=== PATIENT | female | born 1960 | race Caucasian/White ===

== ENCOUNTER 2023-10-03 21:34 | Inpatient (IN) | payer BC, SELFPAY ==
[2023-10-03] VITALS (15 sets, daily range): BP systolic 102–131; BP diastolic 64–68; PULSE 97–118; RESP 15–28; TEMP 37.6; O2SAT 88–97
--- NOTE | ~2023-10-03 | XR_ITS ---
EXAMINATION: XR chest 1V portable DATE: 10/03/2023 22:30 INDICATION: Dyspnea TECHNIQUE: frontal view of the chest was obtained. COMPARISON: CT dated 10/03/2023 FINDINGS: Airspace opacities in the left lower lung zones and project over the elevated right hemidiaphragm and the medial right lower lung zone consistent with pneumonia. The cardiomediastinal silhouette is norm al. Postoperative changes including resection of the medial portion of the bilateral clavicles and wi th multiple surgical clips at the midline of the neck. IMPRESSION: 1. Pneumonia at the bilateral lower lungs Reviewed, dictated and finalized at location A.
--- NOTE | ~2023-10-03 | CT_ITS ---
EXAMINATION: CTA chest PE protocol DATE: 10/03/2023 23:41 INDICATION: Dyspnea and hypoxia TECHNIQUE: Computed tomography (CT) pulmonary angiogram of the chest was performed with 100 mL Omnipa que-350 intravenous contrast. Additional 3D reconstructions utilizing coronal maximum intensity proje ction (MIP) were performed. Automated exposure control and iterative reconstruction technique were em ployed. The dose-length product was 323.00 mGy-cm. COMPARISON: None FINDINGS: No pulmonary embolism. There is patchy consolidation and groundglass opacities without corresponding volume loss in the basilar segments of the left lower lobe into a lesser degree in the posterior basi lar segment of the right lower lobe consistent with pneumonia. Small amount of paramediastinal fibros is in the bilateral upper lobes likely related to prior radiation treatment. Postoperative changes at the thoracic inlet with multiple surgical clips in the region of the absent thyroid with resection o f the medial heads of the bilateral clavicles and likely also a portion of the cephalad aspect of the manubrium. No pleural effusion. Heart size is normal. Minimal pericardial effusion. Thoracic aorta i s normal in caliber with no dissection. Calcified subcarinal lymph node consistent with old granuloma tous disease. No pathologically enlarged thoracic lymphadenopathy. There are a couple low-attenuatio n hepatic cysts measuring up to 1.4 cm. IMPRESSION: 1. No pulmonary embolism. 2. Likely pneumonia in the bilateral lower lobes. 3. 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 Correlate with clinical/surgical history. 4. Minimal pericardial effusion. Reviewed, dictated and finalized at location A. IMPRESSION: 1. No pulmonary embolism. 2. Likely pneumonia in the bilateral lower lobes. 3. Status post thyroidectomy with resection of the medial heads of the bilatera l clavicles and the cephalad portion of the manubrium and likely associated par amediastinal radiation fibrosis in the bilateral upper lobes. Correlate with cl inical/surgical history. 4. Minimal pericardial effusion.
--- NOTE | 2023-10-03 21:44 | ECG_ITS ---
Measurements Intervals [place] Rate: 116 P: [place]: 0 QRS: 6 QRSD: 88 T: 18 QT: 327 QTc: 455 Interpretive Statements SINUS TACHYCARDIA BASELINE WANDER- AVF, V4-V6 MINIMAL Q WAVES- INF/HIGH LAT LEADS BORDERLINE ST ABNORMALITY- LAT/HIGH LAT LEADS ABNORMAL ECG NO PREVIOUS ECG AVAILABLE FOR COMPARISON Electronically Signed On 10-04-2023 7:57:46 CDT by Oscar Pena D.O.
[2023-10-03] MEDS: IPRATROPIUM 0.5 MG/ALBUTEROL SULFATE 2.5 MG AMPUL.NEB 3 ML INHALATION (22:03)
[2023-10-03 22:08] LABS: Alveolar/Arterial O2 Gradient 103.9 mmHg; Base Excess ABG -4.8 mEq/l (+/-2.0); Fractional Inspired Oxygen 28 %; HCO3 ABG 18.6 mEq/l (22.0-26.0); Oxygen Content ABG 16.7 %vol (16.0-22.0); Oxygen Saturation ABG 92.1 % (95.0-100.0); Oxyhemoglobin 90.2 % THb (90.0-100.0); PCO2 ABG 29.6 mmHg (35.0-45.0); PO2 ABG 60.8 mmHg (80.0-100.0); PO2 FiO2 Ratio Arterial Blood 2.17 %; Total Hemoglobin 13.2 g/dL (12.0-18.0); pH ABG 7.415 (7.350-7.450)
[2023-10-03 22:09] LABS: Device NASAL CANNULA; Modified Allen's Test Pass; Site Drawn RIGHT RADIAL
--- NOTE | 2023-10-03 22:25 | ED.GENADULT ---
HPI - General Adult General Chief complaint: Shortness of Breath/Dyspnea Stated complaint: RESPIRATORY DISTRESS Time Seen by Provider: 10/03/23 21:39 History of Present Illness HPI narrative: Patient 63-year-old female who presents emergency department with chief complaint of shortness of breath. The patient states that around 4:00 p.m. she started having episodes of feeling extremely short of breath reports she was wheezing EMS was called and she was found to be saturating 79% on room air patient was given DuoNeb magnesium and Solu-Medrol. The patient was initially started on a non-rebreather but was able to titrate down to the 3 L nasal cannula oxygen. The patient did have a heart rate in the 140s and reports that she does have prior history of atrial fibrillation and is on Cardizem for AFib and takes a daily aspirin. Related Data Home Medications Medication Instructions Recorded Confirmed diltiazem HCl 180 mg mg PO 10/04/23 capsule,extended release 24 hr duloxetine 30 mg capsule,delayed mg PO 10/04/23 release esomeprazole magnesium 40 mg mg 10/04/23 capsule,delayed release levothyroxine 125 mcg tablet mcg 10/04/23 lovastatin 20 mg tablet mg 10/04/23 Allergies Allergy/AdvReac Type Severity Reaction Status Date / Time No Known Allergies Allergy Verified 10/03/23 21:44 Review of Systems Review of Systems: A 10 system review of systems was completed on the patient and is negative except for what is stated in the HPI. Nursing and ancillary documentation was reviewed. Exam Narrative: GENERAL: Well-appearing, well-nourished, and in no acute distress. HEAD: Normocephalic, atraumatic. EYES: PERRLA and EOMI. ENT: Nares clear, no rhinorrhea or epistaxis. Mucous membranes moist. NECK: Supple. CHEST: crackles to auscultation. No respiratory distress. HEART: Regular rate and rhythm. No murmur heard. Normal peripheral pulses. ABDOMEN: Soft, nontender, nondistended, normal active bowel sounds. EXTREMITIES: Normal range of motion. No edema. SKIN: Warm, dry, no rash. NEURO: No focal deficits. Alert and oriented x3. PSYCH: Normal mood and affect. Course Vital Signs Vital signs: Vital Signs Temperature 37.6 C 10/03/23 21:34 Pulse Rate 118 H 10/03/23 21:34 Respiratory Rate 15 03/16/24 21:34 Blood Pressure 121/68 10/03/23 21:34 Pulse Oximetry 88 L 10/03/23 21:34 Oxygen Delivery Room Air 10/03/23 21:34 Temperature 37.6 C 10/03/23 21:34 Pulse Rate 91 10/04/23 02:50 Respiratory Rate 18 10/04/23 02:50 Blood Pressure 107/75 10/04/23 00:51 Pulse Oximetry 95 10/04/23 02:50 Oxygen Delivery Nasal Cannula 10/03/23 21:49 Oxygen Flow Rate 2 10/03/23 21:49 Medical Decision Making MDM Narrative Medical decision making narrative: differential diagnosis includes pneumonia, PE, CHF, ACS, pneumothorax chest x-ray showed no evidence of pneumothorax chest CT showed bilateral lower lobe parenchymal infiltrates left worse than right laboratory studies showed a white count of 11.4 D-dimer was 1.75 ABG showed a pH 7.415 CO2 of 29.6 PO2 of 60.8 electrolytes showed a sodium 137 potassium 3.2 chloride 108 CO2 was 20 BUN was 15 creatinine 0.6 glucose is 122 lactate was 1.3 magnesium was 2.6 liver enzymes within normal limits troponin was 0 hour 3 hour BNP was normal acute procalcitonin is 0.3 urinalysis showed 1+ ketones COVID flu and RSV were negative blood cultures were obtained patient was started on Rocephin and Zithromax the patient will be admi Vital Signs Vital Signs: Vital Signs Temperature 37.6 C 10/03/23 21:34 Pulse Rate 118 H 10/03/23 21:34 Respiratory Rate 15 10/03/23 21:34 Blood Pressure 121/68 10/03/23 21:34 Pulse Oximetry 88 L 10/03/23 21:34 Oxygen Delivery Room Air 10/03/23 21:34 Temperature 37.6 C 10/03/23 21:34 Pulse Rate 91 10/04/23 02:50 Respiratory Rate 18 10/04/23 02:50 Blood Pr
[2023-10-03 22:37] LABS: Hematocrit 37.5 % (37.0-47.0); Hemoglobin 12.8 g/dL (12.0-15.0); Mean Corpuscular HGB Conc 34.1 g/dl (32-36); Mean Corpuscular Volume 90.8 fl (80-100); Mean Platelet Volume 8.5 fl (7.4-10.4); Platelet Count Result 185 k/mm3 (150-375); Red Blood Count 4.13 M/mm3 (4.2-5.4); Red Cell Distribution Width 12.6 % (11.5-14.5); White Blood Count 11.4 K/mm3 (4.5-10.0)
[2023-10-03 22:47] LABS: Magnesium 2.6 mg/dL (1.6-2.3)
[2023-10-03 22:48] LABS: Alanine Aminotransferase 16 U/L (6-35); Albumin Level 4.3 g/dL (3.5-5.1); Alkaline Phosphatase 85 U/L (38-126); Anion Gap 9 mmol/L (8-16); Aspartate Amino Transferase 26 U/L (14-36); Bilirubin,Total 0.5 mg/dL (0.2-1.3); Blood Urea Nitrogen 15 mg/dL (7-17); Calcium 8.9 mg/dL (8.4-10.2); Carbon Dioxide 20 mmol/L (22-30); Chloride 108 mmol/L (98-107); Estimated CRCL calculation 88 ml/min; Estimated Glomerular Filt Rate > 60; Glucose 122 mg/dL (65-110); Potassium 3.2 mmol/L (3.4-5.0); Prothrombin Time 13.4 Seconds (11.1-14.7); Sodium 137 mmol/L (137-145)
[2023-10-03 22:49] LABS: Partial Thromboplastin Time 27.8 Seconds (22.3-36.8)
[2023-10-03 22:57] LABS: NT Pro B Type Natriuretic Pept 78 pg/mL (19.9-100)
[2023-10-03 23:00] LABS: Troponin I < 0.012 ng/mL (0.000-0.034)
[2023-10-03 23:04] LABS: Procalcitonin 0.3 ng/mL
[2023-10-03 23:05] LABS: Lactic Acid Reflex 1.3 mmol/L (0.7-2.0)
[2023-10-03 23:05] LABS: Band Neutrophils Percent 7 % (0-6); Lymphocytes Absolute Manual 0.34 K/mm3 (1.1-4.5); Lymphocytes Percent Manual 3 % (18-44); Monocytes Absolute Manual 0.34 K/mm3 (0.1-0.90); Monocytes Percent Manual 3 % (3-9); Neutrophils Absolute Manual 10.71 K/mm3 (1.7-7.2); Neutrophils Percent Manual 87 % (46-73); Total Cells Counted 100
[2023-10-03 23:06] LABS: Platelet Estimate Adequate (Adequate)
[2023-10-03 23:07] LABS: Large Platelets Present; Polychromasia 1+
[2023-10-03 23:09] LABS: D Dimer 1.75 ug/mL (<0.48); Schistocytes None Seen
[2023-10-03 23:11] LABS: Appearance Urine Clear (Clear); Bilirubin Urine Negative (Negative); Blood Urine Negative (Negative); Color Urine Yellow (Yellow); Glucose Urine UA Negative (Negative); Ketones Urine 1+ mg/dL (Negative); Leukocyte Esterase Ur Negative LEU/UL (Negative); Nitrate Urine Negative (Negative); Protein Urine Negative (Negative); Specific Grav Ur 1.016 (1.001-1.035); Urobilinogen Urine 0.2 mg/dL (<2.0)
[2023-10-03 23:12] LABS: Influenza A QL RT-PCR Negative (Negative); Influenza B QL RT-PCR Negative (Negative); RSV RNA, RT-PCR Negative (Negative); SARS-CoV-2 RNA PCR Negative (Negative)
[2023-10-03 23:23] LABS: Add Urine Microscopic? NO
[2023-10-04] VITALS (23 sets, daily range): BP systolic 97–126; BP diastolic 58–75; PULSE 89–99; RESP 16–20; TEMP 36.4–36.7; O2SAT 92–96; BMI 32.1
--- NOTE | 2023-10-04 01:21 | ECG_ITS ---
Measurements Intervals [place] Rate: 91 P: 23 [place]: 220 QRS: -24 QRSD: 92 T: -25 QT: 382 QTc: 472 Interpretive Statements SINUS RHYTHM WITH FIRST DEGREE AV BLOCK POSSIBLE LEFT ATRIAL ENLARGEMENT DELAYED PRECORDIAL R/S TRANSITION INFERIOR INFARCT, AGE INDETERMINATE BORDERLINE ST-T WAVE ABNORMALITY- HIGH LATERAL LEADS BASELINE WANDER- I, II, III, AVF ABNORMAL ECG COMPARED TO ECG 10/03/2023 21:49:26 SINUS RHYTHM NOW PRESENT MYOCARDIAL INFARCT NOW PRESENT Electronically Signed On 10-04-2023 8:06:21 CDT by Oscar Pena D.O.
[2023-10-04 01:46] LABS: Troponin I < 0.012 ng/mL (0.000-0.034)
[2023-10-04] MEDS: AZITHROMYCIN 500 MG/NS 250 ML 500 MG/250 ML BAG 250 MG IVPB (03:56)
--- NOTE | 2023-10-04 04:37 | ADMGEN ---
This patient, Maria Esther Coreas, was admitted to Medical Room 346-01. Patient/family oriented to hospital policies and general routines including ID bracelet, bed and alarms, visiting hours, pain management, procedures, bathroom and other care routines, personal items, smoking policy, room service/diet, and visiting hours. Information on how to activate the Rapid Response Team has been discussed. Patient/Family are encouraged to report perceived risks to care and to ask questions if they do not understand what they are told or what they should do.
[2023-10-04] MEDS: IPRATROPIUM 0.5 MG/ALBUTEROL SULFATE 2.5 MG AMPUL.NEB 3 ML INHALATION ×3 (07:56→19:42)
[2023-10-04 09:45] LABS: Hematocrit 34.1 % (37.0-47.0); Hemoglobin 11.5 g/dL (12.0-15.0); Mean Corpuscular HGB Conc 33.7 g/dl (32-36); Mean Corpuscular Hemoglobin 30.8 pg (26-34); Mean Corpuscular Volume 91.4 fl (80-100); Mean Platelet Volume 8.6 fl (7.4-10.4); Platelet Count Result 182 k/mm3 (150-375); Red Blood Count 3.73 M/mm3 (4.2-5.4); Red Cell Distribution Width 12.8 % (11.5-14.5); White Blood Count 20.9 K/mm3 (4.5-10.0)
[2023-10-04 09:56] LABS: Alanine Aminotransferase 15 U/L (6-35); Albumin Level 4.1 g/dL (3.5-5.1); Alkaline Phosphatase 76 U/L (38-126); Anion Gap 6 mmol/L (8-16); Aspartate Amino Transferase 24 U/L (14-36); Bilirubin,Total 0.4 mg/dL (0.2-1.3); Blood Urea Nitrogen 16 mg/dL (7-17); Calcium 8.7 mg/dL (8.4-10.2); Carbon Dioxide 23 mmol/L (22-30); Chloride 108 mmol/L (98-107); Estimated CRCL calculation 88 ml/min; Estimated Glomerular Filt Rate > 60; Glucose 175 mg/dL (65-110); Potassium 4.3 mmol/L (3.4-5.0); Sodium 137 mmol/L (137-145)
[2023-10-04] MEDS: LEVOTHYROXINE SODIUM 125 MCG TABLET PO (10:15)
[2023-10-04] MEDS: ASPIRIN 81 MG ENTERIC TABLET PO (10:15)
[2023-10-04] MEDS: dilTIAZem HCL CD 180 MG CAP.24HR PO (10:15)
[2023-10-04] MEDS: PANTOPRAZOLE 40 MG TABLET PO (10:15)
[2023-10-04] MEDS: DULoxetine HCL 30 MG CAPSULE.DR PO (10:15)
--- NOTE | 2023-10-04 12:07 | PM.IMHP ---
H&P: HPI History of Present Illness Date/Time: 10/04/23 12:07 Chief Complaint: SOB, Cough Narrative: This is a 63-year-old with a past medical history of AFib on aspirin, thyroid cancer post thyroidectomy, hypertension and hyperlipidemia presented to the ED on 10/03/2023 due to cough and shortness of breath. she does have a brief history of cigarette use in her 20s but has not smoked since. She has no history of asthma or COPD. Patient and her have been traveling from [facility] on their way down to visit their son in college when she suddenly developed a cough and shortness of breath. Her symptoms started yesterday morning and by the evening she was having a lot of difficulty with breathing. She told her to call 911 and when they arrived her O2 saturation was 74%. In the ED she was given DuoNebs and IV Solu-Medrol. She was originally started on a non-rebreather and was able to be titrated down to 3 L nasal cannula. Labs in the ED revealed a white blood cell count of 11.4, potassium of 3.2, carbon dioxide of 20. ABG with a normal pH, 29.6 pCO2 and bicarb of 18.6. Chest x-ray showing bilateral lower lung pneumonia. CTA of the chest performed and no PE was seen. COVID, flu and RSV negative. Patient admitted for further treatment pneumonia. [facility] Past Medical History Medical History (Updated 10/04/23 @ 12:19 by Emi Henning PA-C) Atrial fibrillation Hyperlipidemia Hypertension Thyroid cancer Surgical History Surgical History (Updated 10/04/23 @ 12:19 by Emi Henning PA-C) H/O thyroidectomy Family History Family History Sibling Acute myocardial infarction Cerebrovascular accident Mother Cirrhosis Father Acute myocardial infarction Social History Social History (Updated 10/04/23 @ 12:20 by Emi Henning PA-C) Social History: Patient smokes cigarettes in her 20s does not done so since, she does drink occasional alcohol. Denies drug use. Lives in [facility]. Smoking status: Former smoker Alcohol intake: current Substance use: never Do You Feel Safe in your Home?: Yes Lack of Transportation: No Lack of Food: Never True Current Housing: I Have Housing Concerned About Future Housing: No Difficulty Paying Gas/Electric Bills: No Difficulty Paying for Meds: No Currently Unemployed: No Education: Don't Know Difficulty w/ Childcare or Family Care: No Spiritual care concerns: No Meds Home Medications and Allergies Home Medications Medication Instructions Recorded Confirmed Type aspirin 81 mg capsule 81 mg PO DAILY 10/04/23 10/04/23 History diltiazem HCl 180 mg 180 mg PO QAM 10/04/23 10/04/23 History capsule,extended release 24 hr duloxetine 30 mg capsule,delayed 30 mg PO DAILY 10/04/23 10/04/23 History release esomeprazole magnesium 40 mg 40 mg PO QAM 10/04/23 10/04/23 History capsule,delayed release levothyroxine 125 mcg tablet 125 mcg PO DAILY 10/04/23 10/04/23 History lovastatin 20 mg tablet 20 mg PO HS 10/04/23 10/04/23 History sumatriptan 85 mg-naproxen 500 mg 1 tablet PO PRN migraines 10/04/23 10/04/23 History tablet trazodone 100 mg tablet 100 mg PO HS 10/04/23 10/04/23 History Allergies Allergy/AdvReac Type Severity Reaction Status Date / Time No Known Allergies Allergy Verified 10/03/23 21:44 Vital Signs Vital Signs - 24 hr 10/03/23 21:34 10/03/23 21:44 10/03/23 21:49 Temperature 99.6 F Pulse Rate 118 H Respiratory Rate 15 Blood Pressure 121/68 Pulse Oximetry 88 L 94 93 Oxygen Delivery Room Air Nasal Cannula Nasal Cannula Oxygen Flow Rate 4 2 Fraction of Inspired Oxygen 10/03/23 21:52 10/03/23 22:03 10/03/23 22:11 Temperature Pulse Rate 114 H 111 H 114 H Respiratory Rate 23 H 25 H Blood Pressure Pulse Oximetry Oxygen Delivery Oxygen Flow Rate Fraction of Inspired Oxygen 10/03/23 22:02 10/02
[2023-10-04] MEDS: BENZOCAINE/MENTHOL (*BKC) 18 EA LOZENGE 1 LOZENGE PO (15:32)
[2023-10-04] MEDS: LOVASTATIN 20 MG TABLET PO (20:38)
[2023-10-04] MEDS: traZODone HCL 50 MG TABLET 100 MG PO (20:38)
[2023-10-04] MEDS: BENZONATATE 100 MG CAPSULE PO (22:32)
[2023-10-05] VITALS (16 sets, daily range): BP systolic 116–131; BP diastolic 66–77; PULSE 77–94; RESP 16–18; TEMP 36.1–36.9; O2SAT 91–94
[2023-10-05] MEDS: IPRATROPIUM 0.5 MG/ALBUTEROL SULFATE 2.5 MG AMPUL.NEB 3 ML INHALATION ×4 (01:53→20:11)
[2023-10-05] MEDS: AZITHROMYCIN 500 MG/NS 250 ML 500 MG/250 ML BAG 250 MG IVPB (03:30)
[2023-10-05] MEDS: LEVOTHYROXINE SODIUM 125 MCG TABLET PO (05:54)
[2023-10-05] MEDS: BENZONATATE 100 MG CAPSULE PO ×2 (05:54→20:37)
[2023-10-05 06:11] LABS: Alanine Aminotransferase 13 U/L (6-35); Albumin Level 3.6 g/dL (3.5-5.1); Alkaline Phosphatase 71 U/L (38-126); Anion Gap 6 mmol/L (8-16); Aspartate Amino Transferase 19 U/L (14-36); Basophils Percent Auto 0.1 % (0.2-1.2); Bilirubin,Total 0.3 mg/dL (0.2-1.3); Blood Urea Nitrogen 13 mg/dL (7-17); Calcium 8.7 mg/dL (8.4-10.2); Carbon Dioxide 23 mmol/L (22-30); Chloride 111 mmol/L (98-107); Estimated CRCL calculation 104 ml/min; Estimated Glomerular Filt Rate > 60; Glucose 108 mg/dL (65-110); Hematocrit 34.4 % (37.0-47.0); Hemoglobin 11.1 g/dL (12.0-15.0); Immature Granulocyte Absolute 0.09 K/mm3 (0.00-0.031); Immature Granulocyte Percent A 0.5 % (0-0.5); Lymphocytes Absolute Auto 1.46 K/mm3 (0.9-3.2); Lymphocytes Percent Auto 8.9 % (18.3-44.2); Magnesium 2.5 mg/dL (1.6-2.3); Mean Corpuscular HGB Conc 32.3 g/dl (32-36); Mean Corpuscular Hemoglobin 30.7 pg (26-34); Mean Platelet Volume 8.8 fl (7.4-10.4); Monocytes Absolute Auto 0.9 K/mm3 (0.1-0.6); Monocytes Percent Auto 5.5 % (2.6-8.5); Platelet Count Result 180 k/mm3 (150-375); Potassium 3.9 mmol/L (3.4-5.0); Red Blood Count 3.62 M/mm3 (4.2-5.4); Red Cell Distribution Width 13.1 % (11.5-14.5); Sodium 140 mmol/L (137-145); White Blood Count 16.5 K/mm3 (4.5-10.0)
[2023-10-05] MEDS: ASPIRIN 81 MG ENTERIC TABLET PO (08:48)
[2023-10-05] MEDS: DULoxetine HCL 30 MG CAPSULE.DR PO (08:48)
[2023-10-05] MEDS: PANTOPRAZOLE 40 MG TABLET PO (08:48)
[2023-10-05] MEDS: dilTIAZem HCL CD 180 MG CAP.24HR PO (08:48)
--- NOTE | 2023-10-05 13:06 | PM.IMPN ---
Progress Note: A&P Assessment and Plan (1) Pneumonia: Code(s): J18.9 - Pneumonia, unspecified organism Status: Acute Assessment and Plan: Chest x-ray showing Pneumonia in bilateral lower lung zones. Chest CTA negative for PE Patient started on ceftriaxone azithromycin. First dose given on 10/04/2023. DuoNeb q.6 hours. Pt able to be weaned off oxygen but still having some shortness of breath Supportive care with lozenges, Tessalon Perles and nebs If patient is doing better tomorrow will likely discharge. (2) Acute hypoxemic respiratory failure: Code(s): J96.01 - Acute respiratory failure with hypoxia Status: Resolved Assessment and Plan: Likely secondary to pneumonia. Continue DuoNebs resolved. (3) Atrial fibrillation: Code(s): I48.91 - Unspecified atrial fibrillation Status: Acute Assessment and Plan: Continue aspirin and diltiazem. Rate controlled. Subjective Date/time seen: 10/05/23 13:06 Interval history: Patient no longer requiring oxygen. She is still having some mild shortness of breath with activity as well as a very hacky cough. Patient's white count is trending down and today was 16.5. Would like to keep patient 1 more night for IV antibiotics and consider discharge in the morning. If patient continues to do well off of oxygen the plan will be to discharge in the morning. She denies chest pain, nausea, vomiting and dysuria. She does have some intermittent sputum production with coughing. Exam Narrative: GENERAL: Comfortable, no acute distress HENMT: moist mucous membranes EYES: EOM intact b/l NECK: no lymphadenopathy RESPIRATORY: bibasilar crackles CARDIO: irregular rhythm, rate controlled. GI: soft, nontender, bowel sounds present SKIN: no rashes EXTREMITIES: no edema, redness or tenderness Objective Data Vital Signs Vital Signs: Vital Signs - 24 hr 10/04/23 13:18 10/04/23 13:27 10/04/23 16:00 Temperature Pulse Rate 92 90 91 Respiratory Rate 20 20 Blood Pressure Pulse Oximetry Oxygen Delivery Fraction of Inspired Oxygen 10/04/23 14:00 10/04/23 19:43 10/04/23 19:44 Temperature 98.0 F Pulse Rate 98 89 Respiratory Rate 16 19 Blood Pressure 97/58 L Pulse Oximetry 94 92 Oxygen Delivery Room Air Fraction of Inspired Oxygen 21 10/04/23 19:51 10/04/23 20:00 10/04/23 20:00 Temperature Pulse Rate 92 97 92 Respiratory Rate 20 20 Blood Pressure Pulse Oximetry 92 Oxygen Delivery Room Air Fraction of Inspired Oxygen 21 10/04/23 22:00 10/05/23 00:00 10/05/23 01:54 Temperature 97.6 F Pulse Rate 91 89 87 Respiratory Rate 18 18 Blood Pressure 108/59 L Pulse Oximetry 96 Oxygen Delivery Fraction of Inspired Oxygen 10/05/23 02:06 10/05/23 04:00 10/05/23 06:00 Temperature 97 F L Pulse Rate 85 92 88 Respiratory Rate 18 16 Blood Pressure 116/70 Pulse Oximetry 94 Oxygen Delivery Fraction of Inspired Oxygen 10/05/23 07:03 10/05/23 07:03 10/05/23 07:13 Temperature Pulse Rate 88 88 87 Respiratory Rate 18 18 18 Blood Pressure Pulse Oximetry 91 Oxygen Delivery Room Air Fraction of Inspired Oxygen 10/05/23 08:57 10/05/23 08:00 10/05/23 12:00 Temperature Pulse Rate 86 80 Respiratory Rate Blood Pressure Pulse Oximetry Oxygen Delivery Room Air Fraction of Inspired Oxygen Intake/Output Intake/Output: Intake & Output 10/02/23 10/03/23 10/04/23 10/05/23 23:59 23:59 23:59 23:59 Intake Total 1490 540 Output Total 200 Balance 1290 540 Meds/Results Medications: Active Medications Generic Name Dose Route Start Last Admin Trade Name Freq PRN Reason Stop Dose Admin Acetaminophen 650 mg 10/04/23 03:05 Acetaminophen 325 Mg Tablet PO Q4H PRN Mild Pain (1-3) or Fever Albuterol/Ipratropium 3 ml 10/04/23 08:00 10/05/23 07:04 Ipratropiu
[2023-10-05] MEDS: traZODone HCL 50 MG TABLET 100 MG PO (20:37)
[2023-10-05] MEDS: LOVASTATIN 20 MG TABLET PO (20:37)
[2023-10-06] MEDS: IPRATROPIUM 0.5 MG/ALBUTEROL SULFATE 2.5 MG AMPUL.NEB 3 ML INHALATION ×2 (02:34→07:35)
[2023-10-06 02:36] VITALS: PULSE 82; RESP 18
[2023-10-06 02:44] VITALS: PULSE 80; RESP 18
[2023-10-06] MEDS: LEVOTHYROXINE SODIUM 125 MCG TABLET PO (04:36)
[2023-10-06] MEDS: AZITHROMYCIN 500 MG/NS 250 ML 500 MG/250 ML BAG 250 MG IVPB (04:36)
[2023-10-06] MEDS: BENZONATATE 100 MG CAPSULE PO (04:38)
[2023-10-06 04:44] VITALS: BP 101/60; PULSE 88; RESP 14; TEMP 37.1; O2SAT 93
[2023-10-06 06:17] LABS: Hematocrit 33.6 % (37.0-47.0); Hemoglobin 10.9 g/dL (12.0-15.0); Mean Corpuscular HGB Conc 32.4 g/dl (32-36); Mean Corpuscular Hemoglobin 30.9 pg (26-34); Mean Corpuscular Volume 95.2 fl (80-100); Mean Platelet Volume 8.4 fl (7.4-10.4); Platelet Count Result 180 k/mm3 (150-375); Red Blood Count 3.53 M/mm3 (4.2-5.4); White Blood Count 12.3 K/mm3 (4.5-10.0)
[2023-10-06 06:32] LABS: Anion Gap 3 mmol/L (8-16); Blood Urea Nitrogen 11 mg/dL (7-17); Calcium 8.5 mg/dL (8.4-10.2); Carbon Dioxide 26 mmol/L (22-30); Chloride 110 mmol/L (98-107); Estimated CRCL calculation 104 ml/min; Estimated Glomerular Filt Rate > 60; Glucose 95 mg/dL (65-110); Potassium 3.5 mmol/L (3.4-5.0); Sodium 139 mmol/L (137-145)
--- NOTE | 2023-10-06 07:05 | PM.DS ---
DS: Admitting Diagnosis Discharge Date 10/06/23 Admitting Diagnosis Pneumonia DS: Discharge Diagnosis Discharge Diagnosis (1) Pneumonia: Code(s): J18.9 - Pneumonia, unspecified organism Status: Acute (2) Acute hypoxemic respiratory failure: Code(s): J96.01 - Acute respiratory failure with hypoxia Status: Resolved (3) Atrial fibrillation: Code(s): I48.91 - Unspecified atrial fibrillation Status: Acute DS: Summary Hospital Course Hospital Course: This is a 63-year-old with a past medical history of AFib on aspirin, thyroid cancer post thyroidectomy, hypertension and hyperlipidemia presented to the ED on? 10/03/2023 due to cough and shortness of breath.? she does have a brief history of cigarette use in her 20s but has not smoked since.? She has no history of asthma or COPD. Patient and her have been traveling from [facility] on their way down to visit their son in college when she suddenly developed a cough and shortness of breath.? Her symptoms started yesterday morning and by the evening she was having a lot of difficulty with breathing.? She told her to call 911 and when they arrived her O2 saturation was 74%. ? In the ED she was given DuoNebs and IV Solu-Medrol.? She was originally started on a non-rebreather and was able to be titrated down to 3 L nasal cannula.? Labs in the ED revealed a white blood cell count of 11.4, potassium of 3.2, carbon dioxide of 20.? ABG with a normal pH, 29.6 pCO2 and bicarb of 18.6.? Chest x-ray showing bilateral lower lung pneumonia.? CTA of the chest performed and no PE was seen. ? COVID, flu and RSV negative. patient continued on IV antibiotics during hospital stay. DuoNebs helped with shortness of breath and difficulty breathing. Patient was able to be weaned down back to room air. Patient received 2 days of IV antibiotic therapy. She was feeling much better after this was be able to put on p.o. antibiotics. Patient's cough improved and she began to have some mucus production and able to clear her lungs. She was discharged home on p.o. antibiotics, system Perles and albuterol p.r.n.. Her labs and vital signs are stable and she was cleared for discharge on 10/06/2023. Time Spent with Patient Time attestation: Total time spent providing and/or coordinating discharge services: Exam Narrative: GENERAL: Comfortable, no acute distress HENMT: moist mucous membranes EYES: EOM intact b/l NECK: no lymphadenopathy RESPIRATORY: bibasilar crackles - wildly improved CARDIO: irregular rhythm, rate controlled. GI: soft, nontender, bowel sounds present SKIN: no rashes EXTREMITIES: no edema, redness or tenderness DS: Data Data Completed and Pending Labs on day of discharge: Labs from last 24 hours 10/06/23 05:56 WBC 12.3 H RBC 3.53 L Hgb 10.9 L Hct 33.6 L MCV 95.2 MCH 30.9 MCHC 32.4 RDW 13.0 Plt Count 180 MPV 8.4 Sodium 139 Potassium 3.5 Chloride 110 H Carbon Dioxide 26 Anion Gap 3 L BUN 11 Creatinine 0.50 L Estim Creat Clear Calc 104 Estimated GFR > 60 Glucose 95 Calcium 8.5 Preliminary micro results at discharge 10/04/23 03:22 Blood Culture - Preliminary Blood 10/04/23 03:22 Blood Culture - Preliminary Blood Discharge Plan Discharge Attending physician on discharge: Tammy Butt Discharging Clinician: Emi Henning Patient Disposition: Home, Self-Care Activity: as tolerated Diet: regular Discharge Instructions: Medications: Augmentin 875-125mg twice daily for 5 more days. Start tomorrow, 10/07/23, in the AM. Azithromycin 500 mg daily for 3 more days. Start tomorrow, 10/07/23, in the AM. Supportive care: OTC Lozenges and cough medicine Albuterol inhaler as needed Discharge disposition: Take medications as prescribed Monitor blood pressures Avoid social areas, you wear a mask when in social settings Encouraged to continue with yearly vaccinations Return t
[2023-10-06 07:36] VITALS: PULSE 84; RESP 18
[2023-10-06 07:38] VITALS: PULSE 84; RESP 18; O2SAT 94
== END 2023-10-06 07:54 | disposition home or self-care (01) | DRG 193 ==
LOC: ANHED 10-04 02:55 → ANH3MED 10-04 04:00 → ANH2MED 10-04 12:08 → ANH3MED 10-04 12:09
PROVIDERS: Admitting Provider Internal Medicine; Emergency Provider Emergency Medicine; Visit Provider Internal Medicine Critical Care Medicine
DX: J18.9 Pneumonia, unspecified organism (principal); J96.01 Acute respiratory failure with hypoxia; I48.20 Chronic atrial fibrillation, unspecified; I10 Essential (primary) hypertension; E78.5 Hyperlipidemia, unspecified; Z20.822 Contact with and (suspected) exposure to COVID-19; Z79.82 Long term (current) use of aspirin; Z85.850 Personal history of malignant neoplasm of thyroid
CPT/HCPCS: 36415; 36600; 71045; 71275; 80048; 80053; 82805; 83605; 83735; 83880; 84145; 84484; 85025; 85027; 85380; 85610; 85730; 87040; 87637; 93005; 94640; 96365; 96375; 99285; A9270; G0378; J0456; J0696; Q9967